=== PATIENT | female | born 1980 | race African-American/Black ===

== ENCOUNTER → 2021-03-02 15:30 | Outpatient (BNVA) | payer MEDICAID, SELFPAY | PROVIDERS: PCP Internal Medicine; Referring Provider Internal Medicine; Visit Provider Surgery | DX: L72.0 Epidermal cyst (principal) | CPT/HCPCS: 99202 ==

== ENCOUNTER 2021-04-07 14:00 | Outpatient (REF) | payer MEDICAID, SELFPAY ==
[2021-04-07 14:18] VITALS: BP 150/83; PULSE 72; RESP 16; TEMP 37.1; O2SAT 98; BMI 23.3
--- NOTE | 2021-04-07 14:37 | W.PM.OPN ---
Operative Note Operative Note Date of Service: 04/07/21 Narrative: Preop diagnosis: Epidermal inclusion cyst, left axilla Postop diagnosis: The same Procedure: Excision of epidermal inclusion cyst, left axilla under local anesthesia Surgeon: Jared Sanchez MD Emergency Room Nurse: Chuck Kim student The patient is a 40 year female with a cystic mass in the left axilla measuring about 1.6 cm in diameter. This was consistent with an epidermal inclusion cyst. She understood the technique of excision under local anesthesia and was aware of the risks, benefits, and alternatives. She was brought to the minor procedure room and placed supine with the left arm abducted to expose the left axilla. The area of the cyst was prepped and draped. Lidocaine 1% was used for local anesthesia. I made an elliptical incision in the skin overlying this cyst using blade 15. And this carried down through the full-thickness of the skin and subcutaneous fat excise entire mass with the cyst capsule intact. This was sent as specimen. The incision was closed with full-thickness nylon 3-0 interrupted sutures. Dressings were applied and the procedure was completed The patient tolerated procedure well. There were no complications noted. Estimated blood loss was about less than 1 cc. The patient was given wound care instructions and will be seen in the office for removal sutures.
[2021-04-07 14:39] VITALS: BP 136/78; PULSE 68; RESP 16; O2SAT 98
== END 2021-04-07 14:01 | disposition home or self-care (01) ==
LOC: HO.MS 14:00
PROVIDERS: PCP Internal Medicine; Visit Provider Surgery
PROC: (CPT 11402; principal; 2021-04-07 14:00)
DX: L72.0 Epidermal cyst (principal); Z88.2 Allergy status to sulfonamides
CPT/HCPCS: 11402; 88304

== ENCOUNTER → 2021-04-18 10:46 | Outpatient (BNVA) | payer MEDICAID, SELFPAY | PROVIDERS: PCP Internal Medicine; Referring Provider Internal Medicine; Visit Provider Surgery | DX: Z48.817 Encounter for surgical aftercare following surgery on the skin and subcutaneous tissue (principal); Z87.2 Personal history of diseases of the skin and subcutaneous tissue | CPT/HCPCS: 99212 ==

== ENCOUNTER 2023-08-03 09:36 | Outpatient (REF) | payer MEDICAID, SELFPAY ==
--- NOTE | ~2023-08-03 | US_ITS ---
EXAMINATION: US COMPLETE ABDOMEN WITH LIVER ELASTOGRAPHY CLINICAL INFORMATION: Elevated liver function tests. COMPARISON: None available. TECHNIQUE: Real-time imaging of the abdominal viscera. Noninvasive ultrasound liver fibrosis assessment is performed using Melvin ElastPQ point quantification shear wave elastography (2D-SWE) with a C5-2 MHz transducer. Multiple elastography samples are obtained. FINDINGS: PANCREAS: Normal. The visualized pancreatic head and body are normal in appearance. The remainder of the pancreas is obscured from visualization by the overlying bowel gas. ABDOMINAL AORTA: The proximal, middle, and distal aortic segments are normal in caliber. INFERIOR VENA CAVA: Visualized portions are normal. LIVER: Normal. The liver demonstrates normal size, contour and generally increased echogenicity. No focal lesion or intrahepatic biliary duct dilatation. The right lobe measures 18.1 cm in length. The left lobe measures 13.3 cm in length. Portal flow is towards the liver (hepatopetal). Shear wave liver elastography median stiffness is 2.12 m/s (reference: normal median stiffness is 1.3 m/s or less). IQR/median stiffness to assess sampling precision is 0.04 (reference: good quality data set is IQR/median stiffness of 0.15 or less). GALLBLADDER: There are layering, shadowing gallstones, without sludge, polyps, wall thickening or pericholecystic fluid. COMMON BILE DUCT: Normal in caliber measuring 0.5 cm in diameter. RIGHT KIDNEY: At the lower pole, a 1.8 cm benign, simple cyst is seen, for which no imaging follow-up is recommended. No hydronephrosis. No renal calculi or focal parenchymal lesions. The kidney measures 10.3 cm in maximum dimension. LEFT KIDNEY: Normal. No hydronephrosis. No renal calculi or focal parenchymal lesions. The kidney measures 11.0 cm in maximum dimension. SPLEEN: Normal. The spleen measures 9.0 cm in maximum dimension. FREE FLUID: None. US/US abdomen comp w elastography IMPRESSION: 1. There is generalized increase in hepatic echotexture, consistent with fatty infiltration or hepatocellular disease. Please correlate clinically. No focal hepatic mass or intrahepatic biliary dilatation is seen. 2. There is mild hepatomegaly. 3. Liver elastography: Measuremensts are consistent with compensated advanced chronic liver disease. 4. There is cholelithiasis. REFERENCE: Society of [employer] in Ultrasound Liver Stiffness Thresholds (2020): LIVER STIFFNESS THRESHOLDS: *Liver Stiffness equal or less than 1.3 m/s: High probability of being normal. *Liver Stiffness less than 1.7 m/s: In the absence of other known clinical signs, rules out compensated advanced chronic liver disease. *Liver Stiffness 1.7-2.1 m/s: Suggestive of compensated advanced chronic liver disease but need further test for confirmation. *Liver Stiffness over 2.1 m/s: Rules in compensated advanced chronic liver disease. *Liver Stiffness over 2.4 m/s: Suggestive of clinically significant portal hypertension. QUALITY OF DATA SET: *IQR/Median value equal or less than 0.15 implies a quality data set. *IQR/Median value over 0.15 implies a poor quality data set. SIGNIFICANT CHANGE FROM PRIOR EXAM: Significant change if liver stiffness measurement is 10% or greater from prior exam. OTHER CONSIDERATIONS: The stage of liver fibrosis may be overestimated in the setting of acute hepatitis, liver inflammation, elevated liver function tests, hepatic vascular congestion, obstructive cholestasis, non-fasting state, and infiltrative diseases such as amyloidosis and lymphoma. In some patients with NAFLD, the liver stiffness thresholds for compensated advanced chronic liver disease may be lower. In causes other than viral hepatitis and NAFLD, liver stiffness thresholds are not well established.
== END 2023-08-03 09:37 | disposition home or self-care (01) ==
LOC: HO.US 09:36
PROVIDERS: PCP Internal Medicine; Visit Provider Internal Medicine
DX: R94.5 Abnormal results of liver function studies (principal)
CPT/HCPCS: 76700; 76981